=== PATIENT | male | born 1935 | race Caucasian/White ===

== ENCOUNTER 2017-05-29 08:48 | Inpatient (IN) | payer OTHER, MEDICARE ==
[~2017-05-29] VITALS: Ht 177.8 cm; Wt 104.2 kg
[~2017-05-29 08:48] MED LIST: ARMOUR THYROID30 MG PO; CATAPRES0.1 MG PO; CLONIDINE HCL0.1 MG PO; COMBIGAN O20 DROP/5 BOTH EYES; COUMADIN10 MG PO; COUMADIN5 MG PO; COUMADIN7.5 MG PO; COZAAR100 MG PO; DIGOXIN250 MCG PO; KEFLEX500 MG PO; LANOXIN250 MCG PO; LASIX40 MG PO; LOPRESSOR50 MG PO; LOSARTAN POTAS100 MG PO; LOTENSIN40 MG PO
[2017-05-29 09:19] LABS: BASOPHIL (%) 0.2 % (0-1); EOSINOPHIL (%) 0.3 % (0-5); HEMATOCRIT 41.7 % (38.0-50.0); HEMOGLOBIN 13.5 G/DL (12.5-16.6); IMMATURE GRANULOCYTE (%) 1.1 % (0.0-0.7); LYMPHOCYTE (%) 16.7 % (15-42); LYMPHOCYTE COUNT 1.8 K/uL (1.0-2.8); MCHC 32.4 G/DL (30.0-36.0); MCV 89.5 FL (86-99); MONOCYTE (%) 11.2 % (3-12); MONOCYTE COUNT 1.2 K/uL (0-0.8); NEUTROPHIL (%) 70.5 % (45-76); NEUTROPHIL COUNT 7.7 K/uL (1.8-6.4); PLATELET COUNT 187 K/uL (156-360); RBC DIS.WIDTH-CV 14.7 % (11.8-14.6); RBC DIS.WIDTH-SD 48.6 % (39-53); RED BLOOD COUNT 4.66 M/uL (4.00-5.50); WHITE BLOOD COUNT 10.9 K/uL (4.1-10.2)
[2017-05-29 09:25] LABS: INTER. NORMALIZED RATIO 2.4
[2017-05-29 09:28] LABS: PTT 35.2 SEC (25-37)
[2017-05-29 09:45] LABS: CHLORIDE 96 mEq/L (99-109); POTASSIUM 4.9 mEq/L (3.7-5.4); SODIUM 133 mEq/L (136-147)
[2017-05-29 09:46] LABS: TROP-I INTERPRETATION NEGATIVE; TROPONIN-I 0.09 ng/mL (0.0-0.30)
[2017-05-29 09:47] LABS: GLUCOSE 109 mg/dL (70-99)
[2017-05-29 09:51] LABS: CREATININE 2.7 mg/dL (0.6-1.3); GFR ESTIMATE (CALCULATED) 24 mL/min/ (58.99-99999)
[2017-05-29 09:52] LABS: UREA NITROGEN (BUN) 54 mg/dL (9-23)
[2017-05-29 10:01] LABS: DIGOXIN 2.3 ng/mL (0.8-2.0)
[2017-05-29] MEDS ORDERED: NATURE-THROID97.5 MG PO (11:28)
[2017-05-29] MEDS ORDERED: VITAMIN B-6100 MG PO (11:28)
[2017-05-29 13:52] VITALS: BP 129/60
[2017-05-29 17:35] VITALS: BP 122/58
[2017-05-29 20:00] VITALS: BP 137/63
[2017-05-29 20:35] LABS: APPEARANCE CLEAR ((CLEAR)); BILIRUBIN NEGATIVE; BLOOD SMALL; COLOR YELLOW ((YELLOW)); GLUCOSE (STRIP) NEGATIVE; KETONES NEGATIVE; LEUKOCYTES SMALL; NITRITE NEGATIVE; PROTEIN (STRIP) NEGATIVE; SPECIFIC GRAVITY 1.006 (1.000-1.030); UROBILINOGEN 0.2 MG/DL (0.2-1.0)
[2017-05-29 21:09] LABS: BACTERIA RARE /HPF; EPITHELIAL CELLS NONE SEEN /HPF; MUCUS TRACE /LPF; RED BLOOD CELLS 0-5 /HPF (0-5)
[2017-05-29 23:55] VITALS: BP 125/58
[2017-05-30 04:00] VITALS: BP 146/66
[2017-05-30 04:51] LABS: HEMATOCRIT 41.1 % (38.0-50.0); MCH 28.6 PG (29.0-34.0); MCHC 31.6 G/DL (30.0-36.0); MCV 90.3 FL (86-99); PLATELET COUNT 167 K/uL (156-360); RBC DIS.WIDTH-CV 14.6 % (11.8-14.6); RBC DIS.WIDTH-SD 48.2 % (39-53); RED BLOOD COUNT 4.55 M/uL (4.00-5.50); WHITE BLOOD COUNT 10.1 K/uL (4.1-10.2)
[2017-05-30 05:04] LABS: CHLORIDE 99 mEq/L (99-109); POTASSIUM 4.9 mEq/L (3.7-5.4); SODIUM 138 mEq/L (136-147)
[2017-05-30 05:06] LABS: GLUCOSE 93 mg/dL (70-99)
[2017-05-30 05:09] LABS: PHOSPHORUS 4.6 mg/dL (2.5-4.9)
[2017-05-30 05:10] LABS: CREATININE 2.4 mg/dL (0.6-1.3); GFR ESTIMATE (CALCULATED) 28 mL/min/ (58.99-99999)
[2017-05-30 05:11] LABS: UREA NITROGEN (BUN) 60 mg/dL (9-23)
[2017-05-30 05:19] LABS: DIGOXIN 1.8 ng/mL (0.8-2.0)
[2017-05-30 06:46] LABS: INTER. NORMALIZED RATIO 2.8
[2017-05-30 11:02] VITALS: BP 115/53
[2017-05-30 12:00] VITALS: BP 146/72
[2017-05-30 14:49] LABS: C DIFF TOXIN NEGATIVE (NEGATIVE)
[2017-05-30 15:49] VITALS: BP 134/65
[2017-05-30 19:23] VITALS: BP 142/64
[2017-05-30 23:15] VITALS: BP 157/79
[2017-05-31 04:26] VITALS: BP 169/85
[2017-05-31 05:50] LABS: HEMOGLOBIN 12.2 G/DL (12.5-16.6); MCH 27.7 PG (29.0-34.0); MCHC 30.5 G/DL (30.0-36.0); MCV 90.7 FL (86-99); PLATELET COUNT 173 K/uL (156-360); RBC DIS.WIDTH-CV 14.6 % (11.8-14.6); RBC DIS.WIDTH-SD 48.6 % (39-53); RED BLOOD COUNT 4.41 M/uL (4.00-5.50); WHITE BLOOD COUNT 7.2 K/uL (4.1-10.2)
[2017-05-31 05:52] LABS: INTER. NORMALIZED RATIO 2.6
[2017-05-31 06:16] LABS: CHLORIDE 107 MEQ/L (99-109); GFR ESTIMATE (CALCULATED) 44 mL/min/ (58.99-99999); GLUCOSE 94 mg/dL (70-99); MAGNESIUM 2.5 mg/dl (1.3-2.7); POTASSIUM 4.3 MEQ/L (3.7-5.4); SODIUM 143 MEQ/L (136-147); UREA NITROGEN (BUN) 41 mg/dL (9-23)
[2017-05-31 06:25] LABS: CREATININE 1.6 MG/DL (0.6-1.3)
[2017-05-31 12:53] VITALS: BP 174/72
[2017-05-31] MEDS ORDERED: CEFTIN500 MG PO (13:09)
[2017-05-31] MEDS ORDERED: METOPROLOL SUCC50 MG PO (13:12)
[2017-05-31] MEDS ORDERED: LASIX40 MG PO (13:12)
[2017-05-31] MEDS ORDERED: COUMADIN7.5 MG PO (13:26)
[2017-05-31 15:08] VITALS: BP 169/80
== END 2017-05-31 16:25 | disposition home health service (06) | DRG 309 ==
LOC: EME 08:48 → 4EAST 11:08 → EDOF 11:08 → ENRESERV 11:12 → EDOF 11:18 → ENRESERV 12:37 → 4EAST 13:51 → ENPENDDIS 05-31 → 4EAST 05-31 16:25
PROVIDERS: Emergency Medicine; Internal Medicine; Internal Medicine Cardiovascular Disease
PROC: 5A09357 Assistance with Respiratory Ventilation, Less than 24 Consecutive Hours, Continuous Positive Airway Pressure (ICD-10-PCS; principal; 2017-05-30)
DX: R00.1 Bradycardia, unspecified (principal); N17.9 Acute kidney failure, unspecified; T46.0X5A Adverse effect of cardiac-stimulant glycosides and drugs of similar action, initial encounter; E87.1 Hypo-osmolality and hyponatremia; E86.0 Dehydration; N39.0 Urinary tract infection, site not specified; I48.2 Chronic atrial fibrillation; I42.0 Dilated cardiomyopathy; I11.0 Hypertensive heart disease with heart failure; I50.9 Heart failure, unspecified; G47.33 Obstructive sleep apnea (adult) (pediatric); I25.10 Atherosclerotic heart disease of native coronary artery without angina pectoris; E03.2 Hypothyroidism due to medicaments and other exogenous substances; R19.7 Diarrhea, unspecified; E66.9 Obesity, unspecified; Z68.32 Body mass index [BMI] 32.0-32.9, adult; I25.2 Old myocardial infarction; Z95.810 Presence of automatic (implantable) cardiac defibrillator; Z79.01 Long term (current) use of anticoagulants
CPT/HCPCS: 71045; 76770; 80047; 80048; 80162; 81003; 82436; 83605; 83735; 84100; 84300; 84484; 84540; 85025; 85027; 85610; 85730; 87493; 93005; 94660; 94760; 99281; 99285; J0461; J0696; J7030

== ENCOUNTER 2017-07-05 09:58 | Inpatient (IN) | payer OTHER, MEDICARE ==
[~2017-07-05] VITALS: Ht 177.8 cm; Wt 106.1 kg
[~2017-07-05 09:58] MED LIST changes: +CEFTIN500 MG PO; +METOPROLOL SUCC50 MG PO; +NATURE-THROID97.5 MG PO; +VITAMIN B-6100 MG PO
[2017-07-05 10:37] LABS: BASOPHIL (%) 0.4 % (0-1); EOSINOPHIL (%) 0.6 % (0-5); EOSINOPHIL COUNT 0.1 K/uL (0-0.3); HEMATOCRIT 44.1 % (38.0-50.0); HEMOGLOBIN 13.9 G/DL (12.5-16.6); IMMATURE GRANULOCYTE (%) 0.4 % (0.0-0.7); LYMPHOCYTE (%) 16.7 % (15-42); LYMPHOCYTE COUNT 1.3 K/uL (1.0-2.8); MCH 28.3 PG (29.0-34.0); MCHC 31.5 G/DL (30.0-36.0); MCV 89.8 FL (86-99); MONOCYTE (%) 9.8 % (3-12); MONOCYTE COUNT 0.8 K/uL (0-0.8); NEUTROPHIL (%) 72.1 % (45-76); NEUTROPHIL COUNT 5.8 K/uL (1.8-6.4); PLATELET COUNT 208 K/uL (156-360); RBC DIS.WIDTH-CV 15.2 % (11.8-14.6); RBC DIS.WIDTH-SD 50.1 % (39-53); RED BLOOD COUNT 4.91 M/uL (4.00-5.50)
[2017-07-05 11:07] LABS: TROP-I INTERPRETATION NEGATIVE; TROPONIN-I 0.05 ng/mL (0.0-0.30)
[2017-07-05 11:14] LABS: CHLORIDE 97 MEQ/L (99-109); CREATININE 1.6 MG/DL (0.6-1.3); GFR ESTIMATE (CALCULATED) 44 mL/min/ (58.99-99999); GLUCOSE 110 mg/dL (70-99); POTASSIUM 4.2 MEQ/L (3.7-5.4); SODIUM 136 MEQ/L (136-147); UREA NITROGEN (BUN) 39 mg/dL (9-23)
[2017-07-05] MEDS ORDERED: LOPRESSOR50 MG PO (13:41)
[2017-07-05] MEDS ORDERED: COUMADIN7.5 MG PO ×2 (13:42→13:43)
[2017-07-05 13:46] LABS: INTER. NORMALIZED RATIO 2.8
[2017-07-05 14:07] LABS: DIGOXIN < 0.3 ng/mL (0.8-2.0)
[2017-07-05 15:26] VITALS: BP 102/66
[2017-07-05 19:49] LABS: BACTERIA RARE /HPF; EPITHELIAL CELLS RARE /HPF; HYALINE CASTS 0-5 /LPF; MUCUS NONE SEEN /LPF; RED BLOOD CELLS 0-5 /HPF (0-5); WHITE BLOOD CELLS 0-5 /HPF (0-5)
[2017-07-05 20:00] LABS: UR CREATININE CONCENTRATION 31.9 MG/DL
[2017-07-05 21:16] VITALS: BP 127/79
[2017-07-06] VITALS: BP 113/78
[2017-07-06 06:21] LABS: HEMATOCRIT 42.3 % (38.0-50.0); HEMOGLOBIN 12.8 G/DL (12.5-16.6); MCH 27.7 PG (29.0-34.0); MCHC 30.3 G/DL (30.0-36.0); MCV 91.6 FL (86-99); PLATELET COUNT 175 K/uL (156-360); RBC DIS.WIDTH-CV 15.3 % (11.8-14.6); RBC DIS.WIDTH-SD 51.2 % (39-53); RED BLOOD COUNT 4.62 M/uL (4.00-5.50); WHITE BLOOD COUNT 7.2 K/uL (4.1-10.2)
[2017-07-06 06:40] LABS: INTER. NORMALIZED RATIO 2.8
[2017-07-06 06:42] LABS: ALBUMIN 3.7 G/DL (3.2-4.8); ALKALINE PHOSPHATASE 56 IU/L (3-129); ALT (GPT) 25 IU/L (3-49); AST (GOT) 21 IU/L (2-34); CHLORIDE 99 MEQ/L (99-109); CREATININE 1.7 MG/DL (0.6-1.3); GFR ESTIMATE (CALCULATED) 41 mL/min/ (58.99-99999); GLUCOSE 86 mg/dL (70-99); POTASSIUM 4.3 MEQ/L (3.7-5.4); TOTAL BILIRUBIN 1.1 MG/DL (0.0-1.0); UREA NITROGEN (BUN) 40 mg/dL (9-23)
[2017-07-06 06:53] LABS: SODIUM 143 MEQ/L (136-147)
[2017-07-06 07:00] VITALS: BP 122/81
[2017-07-06 11:20] VITALS: BP 103/63
[2017-07-06 16:28] VITALS: BP 117/65
[2017-07-06 18:08] LABS: CHLORIDE 98 MEQ/L (99-109); CREATININE 1.5 MG/DL (0.6-1.3); GFR ESTIMATE (CALCULATED) 48 mL/min/ (58.99-99999); GLUCOSE 106 mg/dL (70-99); POTASSIUM 4.3 MEQ/L (3.7-5.4); SODIUM 141 MEQ/L (136-147); UREA NITROGEN (BUN) 39 mg/dL (9-23)
[2017-07-06 19:59] VITALS: BP 130/58
[2017-07-07 04:00] VITALS: BP 123/76
[2017-07-07 05:51] LABS: HEMATOCRIT 42.7 % (38.0-50.0); HEMOGLOBIN 12.7 G/DL (12.5-16.6); MCH 27.5 PG (29.0-34.0); MCHC 29.7 G/DL (30.0-36.0); MCV 92.4 FL (86-99); PLATELET COUNT 178 K/uL (156-360); RBC DIS.WIDTH-CV 14.9 % (11.8-14.6); RBC DIS.WIDTH-SD 51.3 % (39-53); RED BLOOD COUNT 4.62 M/uL (4.00-5.50); WHITE BLOOD COUNT 7.4 K/uL (4.1-10.2)
[2017-07-07 05:58] LABS: INTER. NORMALIZED RATIO 3.1
[2017-07-07 06:16] LABS: CHLORIDE 99 MEQ/L (99-109); CREATININE 1.5 MG/DL (0.6-1.3); GFR ESTIMATE (CALCULATED) 48 mL/min/ (58.99-99999); GLUCOSE 87 mg/dL (70-99); POTASSIUM 4.5 MEQ/L (3.7-5.4); SODIUM 143 MEQ/L (136-147); UREA NITROGEN (BUN) 39 mg/dL (9-23)
[2017-07-07 07:33] VITALS: BP 129/67
[2017-07-07 11:13] VITALS: BP 118/70
[2017-07-07 16:28] VITALS: BP 133/70
[2017-07-07 19:39] VITALS: BP 116/59
[2017-07-07 23:40] VITALS: BP 132/60
[2017-07-08 04:05] VITALS: BP 130/65
[2017-07-08 05:51] LABS: INTER. NORMALIZED RATIO 2.9
[2017-07-08 06:52] LABS: DIGOXIN 0.7 ng/mL (0.8-2.0)
[2017-07-08 07:30] VITALS: BP 141/72
[2017-07-08 07:44] LABS: CHLORIDE 97 MEQ/L (99-109); CREATININE 1.4 MG/DL (0.6-1.3); GFR ESTIMATE (CALCULATED) 52 mL/min/ (58.99-99999); GLUCOSE 95 mg/dL (70-99); SODIUM 143 MEQ/L (136-147); UREA NITROGEN (BUN) 34 mg/dL (9-23)
[2017-07-08 07:46] LABS: CARBON DIOXIDE (BICARBONATE) > 40.0 MEQ/L (20-31)
[2017-07-08 11:48] VITALS: BP 108/62
[2017-07-08 15:24] VITALS: BP 130/70
[2017-07-08 19:45] LABS: APPEARANCE CLEAR ((CLEAR)); BILIRUBIN NEGATIVE; BLOOD NEGATIVE; COLOR STRAW ((YELLOW)); GLUCOSE (STRIP) NEGATIVE; KETONES NEGATIVE; LEUKOCYTES TRACE; NITRITE NEGATIVE; PROTEIN (STRIP) NEGATIVE; SPECIFIC GRAVITY 1.008 (1.000-1.030); UROBILINOGEN 0.2 MG/DL (0.2-1.0)
[2017-07-08 19:48] LABS: BACTERIA NONE SEEN /HPF; EPITHELIAL CELLS NONE SEEN /HPF; MUCUS TRACE /LPF; RED BLOOD CELLS 0-5 /HPF (0-5); UCUL ADDED? NO; WHITE BLOOD CELLS 0-5 /HPF (0-5)
[2017-07-08 21:04] VITALS: BP 120/70
[2017-07-09 01:38] VITALS: BP 130/76
[2017-07-09 04:00] VITALS: BP 137/82
[2017-07-09 06:03] LABS: INTER. NORMALIZED RATIO 2.2
[2017-07-09 06:05] LABS: BASOPHIL (%) 0.5 % (0-1); EOSINOPHIL (%) 1.3 % (0-5); EOSINOPHIL COUNT 0.1 K/uL (0-0.3); HEMATOCRIT 40.2 % (38.0-50.0); HEMOGLOBIN 12.3 G/DL (12.5-16.6); IMMATURE GRANULOCYTE (%) 0.4 % (0.0-0.7); LYMPHOCYTE (%) 26.6 % (15-42); LYMPHOCYTE COUNT 1.5 K/uL (1.0-2.8); MCH 28.3 PG (29.0-34.0); MCHC 30.6 G/DL (30.0-36.0); MCV 92.4 FL (86-99); MONOCYTE COUNT 0.7 K/uL (0-0.8); NEUTROPHIL (%) 59.2 % (45-76); NEUTROPHIL COUNT 3.3 K/uL (1.8-6.4); PLATELET COUNT 144 K/uL (156-360); RBC DIS.WIDTH-CV 14.7 % (11.8-14.6); RBC DIS.WIDTH-SD 50.3 % (39-53); RED BLOOD COUNT 4.35 M/uL (4.00-5.50); WHITE BLOOD COUNT 5.6 K/uL (4.1-10.2)
[2017-07-09 07:08] LABS: ALBUMIN 3.3 G/DL (3.2-4.8); ALKALINE PHOSPHATASE 49 IU/L (3-129); ALT (GPT) 20 IU/L (3-49); AST (GOT) 20 IU/L (2-34); CHLORIDE 95 MEQ/L (99-109); CREATININE 1.2 MG/DL (0.6-1.3); GFR ESTIMATE (CALCULATED) > 59 mL/min/ (58.99-99999); GLUCOSE 86 mg/dL (70-99); POTASSIUM 3.6 MEQ/L (3.7-5.4); SODIUM 142 MEQ/L (136-147); TOTAL PROTEIN 5.6 G/DL (6.4-8.3); UREA NITROGEN (BUN) 25 mg/dL (9-23)
[2017-07-09 07:10] LABS: CARBON DIOXIDE (BICARBONATE) > 40.0 MEQ/L (20-31); TOTAL BILIRUBIN 1.4 MG/DL (0.0-1.0)
[2017-07-09 07:26] VITALS: BP 133/70
[2017-07-09 07:53] LABS: DIGOXIN 0.5 ng/mL (0.8-2.0)
[2017-07-09 10:16] LABS: BASE EXCESS 14.4 mEq/L (-3 to +3); BICARBONATE 41.8 mEq/L (22-26); CARBOXY HGB 2.5 % (0-5); COMMENTS - BLOOD GASES A+C+; FI02 21 %; METHEMOGLOBIN 1.2 % (0-1.5); PCO2 63 mm Hg (35-45); PO2 61 mm Hg (80-100); SITE RR; TOTAL RESP RATE 16 resp/min; pH 7.43 (7.35-7.45)
[2017-07-09] MEDS ORDERED: LASIX40 MG PO (11:35)
[2017-07-09] MEDS ORDERED: DIGOXIN125 MCG PO (11:35)
[2017-07-09] MEDS ORDERED: SPIRIVA RESPIMAT4 GM IH (11:35)
[2017-07-09] MEDS ORDERED: VENTOLIN HFA18 GM IH (11:35)
[2017-07-09 11:36] VITALS: BP 111/70
== END 2017-07-09 15:18 | disposition home or self-care (01) | DRG 189 ==
LOC: EME 09:58 → EDOF 13:22 → 5EAST 13:22 → ENRESERV 13:24 → 5EAST 15:13
PROVIDERS: Emergency Medicine; Hospitalist; Internal Medicine; Nurse Practitioner Adult Health; Physician Assistant Medical
DX: J96.01 Acute respiratory failure with hypoxia (principal); I11.0 Hypertensive heart disease with heart failure; I50.43 Acute on chronic combined systolic (congestive) and diastolic (congestive) heart failure; N17.9 Acute kidney failure, unspecified; I95.9 Hypotension, unspecified; I48.0 Paroxysmal atrial fibrillation; I25.10 Atherosclerotic heart disease of native coronary artery without angina pectoris; I42.0 Dilated cardiomyopathy; K22.4 Dyskinesia of esophagus; E03.9 Hypothyroidism, unspecified; I25.2 Old myocardial infarction; Z79.01 Long term (current) use of anticoagulants; Z95.810 Presence of automatic (implantable) cardiac defibrillator
CPT/HCPCS: 36415; 36600; 71045; 71046; 71250; 74220; 76770; 80048; 80048 91; 80053; 80162; 81003; 81015; 82436; 82570; 82803; 82948; 83735; 83880; 84133; 84300; 84484; 85025; 85027; 85610; 92610 GN; 93005; 94010; 94640; 94640 76; 94660; 94799; 99202; 99281; 99285; C9113; J1940